=== PATIENT | male | born 1975 | race Caucasian/White ===

== ENCOUNTER → 2019-04-17 | Outpatient (CLI) | payer BC ==
--- NOTE | 2019-04-17 12:33 | US ---
EXAMINATION TYPE: US liver DATE OF EXAM: 04/17/2019 COMPARISON: NONE CLINICAL HISTORY: R74.8 elevated liver enzymes. Difficult and limited exam due to overlying bowel gas EXAM MEASUREMENTS: Liver Length: 15.1 cm Gallbladder Wall: 0.2 cm CBD: 0.4 cm Right Kidney: 9.8 x 4.7 x 4.9 cm Pancreas: Obscured by bowel gas Liver: Punctate foci of hyperechogenicity are seen such as on image 10/58 throughout the liver that c an be seen in hepatitis. No focal hepatic masses seen on today's examination. Gallbladder: wnl Evidence for sonographic Soto's sign: No CBD: wnl as visualized, distal portion obscured by bowel gas Right Kidney: No hydronephrosis or masses seen IMPRESSION: Heterogenous hepatic echotexture with multiple foci of hyperechogenicity that can be seen in acute hepatitis. No current sonographic evidence of acute cholecystitis.
== END | disposition home or self-care (01) ==
LOC: RADUSWWP 11:55
PROVIDERS: ATTEND Internal Medicine
DX: R74.8 Abnormal levels of other serum enzymes (principal)
CPT/HCPCS: 76705

== ENCOUNTER 2021-06-27 19:20 | Inpatient (IN) | payer BC ==
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
[2021-06-27] MEDS ORDERED: DIPH,PERTUS(ACELL)TETVAC-LF 0.5 ML VIAL IM ONE (20:00)
[2021-06-27] MEDS ORDERED: HYDROmorphone 0.5 MG/0.5 ML SYRINGE IVP STA (20:00)
[2021-06-27] MEDS ORDERED: SODIUM CHLORIDE 0.9% 1,000 ML IV STA (20:00)
[2021-06-27 20:41] LABS: Basophils # (A) 0.1 k/uL (0-0.2); Basophils % (A) 1 %; Eosinophils # (A) 0.2 k/uL (0-0.7); Eosinophils % (A) 1 %; HCT 44.6 % (39.0-53.0); Lymphocytes % (A) 10 %; MCH 33.1 pg (25.0-35.0); MCHC 33.7 g/dL (31.0-37.0); MCV 98.3 fL (80.0-100.0); Monocytes # (A) 0.8 k/uL (0-1.0); Monocytes % (A) 4 %; Neutrophils # (A) 15.8 k/uL (1.3-7.7); Neutrophils % (A) 83 %; Platelet Count 370 k/uL (150-450); RBC 4.54 m/uL (4.30-5.90); RDW 12.8 % (11.5-15.5); WBC 19.1 k/uL (3.8-10.6)
[2021-06-27 20:52] LABS: Partial Thromboplastin Time 22.4 sec (22.0-30.0); Prothrombin Time 10.5 sec (9.0-12.0)
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
[2021-06-27 21:08] LABS: Albumin 4.8 g/dL (3.5-5.0); Calcium 8.8 mg/dL (8.4-10.2); Potassium 4.3 mmol/L (3.5-5.1); Total Bilirubin 0.3 mg/dL (0.2-1.3); Total Protein 7.9 g/dL (6.3-8.2)
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
[2021-06-27] MEDS ORDERED: LIDOCAINE 1% INJ 10MG/ML (20 ML MDV) SQ STA (21:32)
[2021-06-27] MEDS ORDERED: NALOXONE 0.4 MG/ML 1 ML VIAL IV PRN (21:39)
[2021-06-27] MEDS ORDERED: LORazepam 2 MG/ML INJ IV STA (22:08)
[2021-06-27] MEDS ORDERED: HYDROmorphone 1 MG/ML 1 ML SYRINGE IVP STA (23:07)
[2021-06-27] MEDS: SODIUM CHLORIDE 0.9% 1,000 ML IV SCH (23:11)
--- NOTE | 2021-06-27 23:41 | XR ---
EXAMINATION TYPE: XR chest 1V portable DATE OF EXAM: 06/27/2021 COMPARISON: 06/27/2021 HISTORY: Chest tube TECHNIQUE: Single view. There is left-sided chest tube with the tip over the left upper lobe left paraspinal region. There is soft tissue air on the left lateral chest wall. No pneumothorax. Trachea is midline. Heart and media stinum are normal. Lungs appear clear of consolidation. There is left lateral rib fracture. There is soft tissue air at the base of the neck on the left side. IMPRESSION: Left side sixth rib fracture. No pneumothorax. Normal heart and mediastinum.
[2021-06-28 05:55] LABS: Basophils % (A) 0 %; Eosinophils # (A) 0.1 k/uL (0-0.7); Eosinophils % (A) 0 %; HCT 41.5 % (39.0-53.0); HGB 13.8 gm/dL (13.0-17.5); Lymphocytes # (A) 1.3 k/uL (1.0-4.8); Lymphocytes % (A) 8 %; MCHC 33.2 g/dL (31.0-37.0); MCV 99.5 fL (80.0-100.0); Mean Platelet Volume 8.1; Monocytes # (A) 0.9 k/uL (0-1.0); Monocytes % (A) 6 %; Neutrophils # (A) 13.6 k/uL (1.3-7.7); Neutrophils % (A) 85 %; Platelet Count 305 k/uL (150-450); RBC 4.18 m/uL (4.30-5.90); RDW 12.8 % (11.5-15.5); WBC 16.1 k/uL (3.8-10.6)
[2021-06-28 06:15] LABS: ALT 21 U/L (4-49); AST 48 U/L (17-59); African American GFR (CKD) >90 (>60 ml/min/1.73 sqM); Albumin 4.3 g/dL (3.5-5.0); Alkaline Phosphatase 103 U/L (38-126); Anion Gap 11 mmol/L; Blood Urea Nitrogen 11 mg/dL (9-20); Calcium 8.5 mg/dL (8.4-10.2); Carbon Dioxide 23 mmol/L (22-30); Chloride 105 mmol/L (98-107); Glucose 116 mg/dL (74-99); Non-African American GFR(CKD) >90 (>60 ml/min/1.73 sqM); Potassium 4.3 mmol/L (3.5-5.1); Sodium 139 mmol/L (137-145); Total Bilirubin 0.6 mg/dL (0.2-1.3); Total Protein 7.2 g/dL (6.3-8.2)
[2021-06-28] MEDS: HYDROmorphone 0.5 MG/0.5 ML SYRINGE IVP PRN ×3 (07:34→21:01)
[2021-06-28] MEDS ORDERED: HYDROcodone/APAP 5-325MG 1 EACH TAB PO PRN (09:05)
--- NOTE | 2021-06-28 09:14 | XR ---
EXAMINATION TYPE: XR chest 1V portable DATE OF EXAM: 06/28/2021 COMPARISON: 06/27/2021 HISTORY: Chest tube TECHNIQUE: Single frontal view of the chest is obtained. FINDINGS: Chest tube noted with left lower lobe consolidation and small effusion. Left-sided rib fra cture suspected with diffuse subcutaneous no sizable pneumothorax. IMPRESSION: 1. No sizable pneumothorax. Left lower lobe infiltrate and small effusion with subcutaneous emphysema extending into the soft tissues of the neck is stable.
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
--- NOTE | 2021-06-28 10:11 | XR ---
EXAMINATION TYPE: XR knee limited LT DATE OF EXAM: 06/28/2021 COMPARISON: NONE HISTORY: Pain TECHNIQUE: 2 views submitted FINDINGS: Osseous structures intact. Joint spaces preserved. No acute fracture or dislocation. No ero sive changes. IMPRESSION: No acute fracture
[2021-06-28] MEDS: SODIUM CHLORIDE 0.9% 1,000 ML IV SCH ×2 (11:28→15:01)
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
[2021-06-28] MEDS: KETOROLAC 15 MG/ML 1 ML VIAL IVP SCH ×2 (13:34→21:00)
[2021-06-28] MEDS: methocarbamoL 500 MG TAB PO SCH ×2 (13:36→17:52)
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
[2021-06-29] MEDS: methocarbamoL 500 MG TAB PO SCH ×5 (01:04→23:11)
[2021-06-29] MEDS: SODIUM CHLORIDE 0.9% 1,000 ML IV SCH ×4 (01:04→23:11)
[2021-06-29] MEDS: KETOROLAC 15 MG/ML 1 ML VIAL IVP SCH ×5 (01:07→23:10)
[2021-06-29] MEDS ORDERED: ACETAMINOPHEN TAB 325 MG TAB PO PRN (05:37)
--- NOTE | 2021-06-29 06:42 | ECHOF ---
Referral Reason:murmur MEASUREMENTS -------- HEIGHT: 175.3 cm WEIGHT: 83.9 kg BP: RVIDd: 2.4 cm (< 3.3) IVSd: 0.9 cm (0.6 - 1.1) LVIDd: 5.5 cm (3.9 - 5.3) LVPWd: 0.9 cm (0.6 - 1.1) IVSs: 1.3 cm LVIDs: 4.1 cm LVPWs: 0.9 cm Ao Diam: 3.2 cm (2.0 - 3.7) AV Cusp: 2.4 cm (1.5 - 2.6) MV EXCURSION: 17.297 mm (> 18.000) MV EF SLOPE: 121 mm/s (70 - 150) EPSS: 0.5 cm MV E Roberto: 0.86 m/s MV DecT: 183 ms MV A Roberto: 0.74 m/s MV E/A Ratio: 1.16 AV maxP.93 mmHg AV meanP.01 mmHg FINDINGS -------- Sinus rhythm. Pt had L Chest tube placed. The left ventricular size is normal. There is mild concentric left ventricular hypertrophy. Overa ll left ventricular systolic function is normal with, an EF between 55 - 60 %. The right ventricle is normal in size. The left atrial size is normal. The right atrial size is normal. The aortic valve was not well visualized. There is mild aortic stenosis present. Peak/mean gradie nt across the Aortic Valve is 21.93mmHg / 11.01mmHg. Can't exclude possible Bicuspid Aov. Mild mitral regurgitation is present. Mild tricuspid regurgitation present. Right ventricular systolic pressure is normal at < 35 mmHg. There is no pericardial effusion. CONCLUSIONS -------- 1. Pt had L Chest tube placed. 2. The left ventricular size is normal. 3. There is mild concentric left ventricular hypertrophy. 4. Overall left ventricular systolic function is normal with, an EF between 55 - 60 %. 5. The right ventricle is normal in size. 6. The left atrial size is normal. 7. The right atrial size is normal. 8. The aortic valve was not well visualized. 9. There is mild aortic stenosis present. 10. Peak/mean gradient across the Aortic Valve is 21.93mmHg / 11.01mmHg. 11. Can't exclude possible Bicuspid Aov. 12. Mild mitral regurgitation is present. 13. Mild tricuspid regurgitation present. 14. There is no pericardial effusion. CARGO AGENT: Olya Walls RDCS
--- NOTE | 2021-06-29 08:13 | XR ---
EXAMINATION TYPE: XR chest 1V portable DATE OF EXAM: 06/29/2021 COMPARISON: Chest x-ray 06/28/2021 HISTORY: Chest tube, pneumothorax TECHNIQUE: Single frontal view of the chest is obtained. FINDINGS: Left-sided chest tube remains in place showing a transverse orientation in the left mid ch est. Basilar atelectatic changes are present on the left with associated subcutaneous emphysema as on prior exam. Small left apical pneumothorax is present. No evident effusion. Cardiac mediastinal silh ouette is stable. There are overlying artifacts. There may be a spinal curvature. IMPRESSION: Findings are similar to prior exam. Small left apical pneumothorax and chest tube are pr esent. Basilar atelectasis is favored.
[2021-06-29 09:29] LABS: HCT 36.7 % (39.6-50.0); HGB 11.7 g/dL (13.0-17.0); MCH 32.7 pg (27.0-32.0); MCHC 31.9 g/dL (32.0-37.0); MCV 102.5 fL (80.0-97.0); Mean Platelet Volume 11.1 fL (9.5-12.2); Platelet Count 227 X 10*3/uL (140-440); RBC 3.58 X 10*6/uL (4.40-5.60); RDW 12.5 % (11.5-14.5); WBC 12.88 X 10*3/uL (4.50-10.00)
[2021-06-29] MEDS: HYDROmorphone 0.5 MG/0.5 ML SYRINGE IVP PRN (09:45)
[2021-06-29 10:24] LABS: Basophils # (A) 0.06 X 10*3/uL (0.00-0.10); Basophils % (A) 0.5 %; Eosinophils # (A) 0.57 X 10*3/uL (0.04-0.35); Eosinophils % (A) 4.4 %; Lymphocytes # (A) 2.59 X 10*3/uL (0.90-5.00); Lymphocytes % (A) 20.1 %; Monocytes % (A) 12.4 %; Neutrophils # (A) 8.03 X 10*3/uL (1.80-7.70); Neutrophils % (A) 62.4 %
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
--- NOTE | 2021-06-29 13:10 | P.PN ---
Subjective Progress Note Date: 06/29/21 Patient seen and examined at bedside. States he is comfortable overall. Denies any significant pain. Chest tube still in place. Objective - Vital Signs Vital signs: Vital Signs Temp 97.5 F L 06/29/21 08:00 Pulse 68 06/29/21 08:00 Resp 18 06/29/21 08:00 BP 137/89 06/29/21 08:00 Pulse Ox 100 06/29/21 08:00 Intake & Output 06/28/21 06/29/21 06/29/21 18:59 06:59 18:59 Weight 83.915 kg Other: Voiding Method Toilet Urinal # Voids 2 - Constitutional General appearance: Present: cooperative, no acute distress - Respiratory Details: Left sided chest tube in place, no significant air leak - Psychiatric Psychiatric: Present: A&O x's 3 - Labs CBC & Chem 7: 06/29/21 05:46 06/28/21 04:51 Labs: Abnormal Lab Results - Last 24 Hours (Table) 06/29/21 Range/Units 05:46 WBC 12.88 H (4.50-10.00) X 10*3/uL RBC 3.58 L (4.40-5.60) X 10*6/uL Hgb 11.7 L (13.0-17.0) g/dL Hct 36.7 L (39.6-50.0) % MCV 102.5 H (80.0-97.0) fL MCH 32.7 H (27.0-32.0) pg MCHC 31.9 L (32.0-37.0) g/dL Neutrophils # 8.03 H (1.80-7.70) X 10*3/uL Monocytes # 1.60 H (0.20-1.00) X 10*3/uL Eosinophils # 0.57 H (0.04-0.35) X 10*3/uL Assessment and Plan Plan: 46-year-old male with multiple left-sided rib fractures and pneumothorax - X-ray from this morning of the chest revealed small apical pneumothorax. No significant air leak noted in the atrium. Patient is being followed by cardiothoracic surgery. Defer to cardiac thoracic surgery for chest tube management. - Overall, patient's pain is controlled. Patient denies any new pain today. - Progressing slowly
[2021-06-29 15:25] LABS: African American GFR (CKD) 131.2 (60.0-200.0); Anion Gap 3.5 mmol/L (4.00-12.00); BUN/Creat Ratio 21.43 Ratio (12.00-20.00); Calcium 7.9 mg/dL (8.7-10.3); Carbon Dioxide 25.5 mmol/L (21.6-31.8); Magnesium 1.7 mg/dL (1.5-2.4); Non-African American GFR(CKD) 113.2 (60.0-200.0); Potassium 4.3 mmol/L (3.5-5.5)
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
[2021-06-29] MEDS: HEPARIN SODIUM,PORCINE/PF 5,000 UNIT/0.5 ML SYRINGE SQ SCH (23:10)
[2021-06-30] MEDS: HYDROmorphone 0.5 MG/0.5 ML SYRINGE IVP PRN (01:56)
[2021-06-30] MEDS: KETOROLAC 15 MG/ML 1 ML VIAL IVP SCH ×4 (06:03→23:00)
--- NOTE | 2021-06-30 08:11 | XR ---
EXAMINATION TYPE: XR chest 1V portable DATE OF EXAM: 06/30/2021 COMPARISON: Chest x-ray 06/29/2021 HISTORY: Chest tube on the left, pneumothorax TECHNIQUE: Single frontal view of the chest is obtained. FINDINGS: No evident pneumothorax is present, left-sided chest tube remains in place. Basilar atelec tatic changes and subcutaneous emphysema are again noted. There may be some subsegmental basilar atel ectatic change on the right. Cardiac mediastinal silhouette is stable. IMPRESSION: No evident pneumothorax.
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
[2021-06-30] MEDS ORDERED: FAMOTIDINE 20 MG/2 ML VIAL IV SCH (09:00)
[2021-06-30 09:21] LABS: Basophils # (A) 0.08 X 10*3/uL (0.00-0.10); Basophils % (A) 0.7 %; Eosinophils # (A) 0.69 X 10*3/uL (0.04-0.35); Eosinophils % (A) 6.1 %; HCT 36.3 % (39.6-50.0); HGB 11.5 g/dL (13.0-17.0); Lymphocytes # (A) 2.62 X 10*3/uL (0.90-5.00); MCH 31.8 pg (27.0-32.0); MCHC 31.7 g/dL (32.0-37.0); MCV 100.3 fL (80.0-97.0); Mean Platelet Volume 10.9 fL (9.5-12.2); Monocytes # (A) 1.25 X 10*3/uL (0.20-1.00); Neutrophils # (A) 6.73 X 10*3/uL (1.80-7.70); Neutrophils % (A) 58.9 %; Platelet Count 244 X 10*3/uL (140-440); RBC 3.62 X 10*6/uL (4.40-5.60); RDW 12.3 % (11.5-14.5)
[2021-06-30] MEDS: HEPARIN SODIUM,PORCINE/PF 5,000 UNIT/0.5 ML SYRINGE SQ SCH ×2 (09:23→21:12)
[2021-06-30] MEDS: methocarbamoL 500 MG TAB PO SCH ×4 (09:24→21:12)
[2021-06-30] MEDS: SODIUM CHLORIDE 0.9% 1,000 ML IV SCH ×2 (09:25→15:58)
[2021-06-30] MEDS ORDERED: AMOXIC-POT CLAV 500-125 MG 1 EACH TAB PO SCH (10:45)
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
--- NOTE | 2021-06-30 13:28 | US ---
EXAMINATION TYPE: US venous doppler duplex UE LT DATE OF EXAM: 06/30/2021 COMPARISON: NONE CLINICAL HISTORY: swelling. Left hand swelling SIDE PERFORMED: Left Grayscale, color doppler, spectral doppler imaging performed of the deep veins of the upper extremiti es. There is normal flow, compressibility and vascular waveforms. In the visualized left internal jugular vein, subclavian vein, axillary vein, basilic vein, brachial veins, radial and ulnar veins, there is normal flow, compressibility and vascular waveforms. Left Arm: No evidence of DVT Left cephalic vein at IV cath site at antecubital fossa there is superficial thrombus with low-level internal echoes, there is a catheter identified, more centrally the cephalic vein shows compression OSMEL Howard on [address] called with results IMPRESSION: No evident deep venous thrombosis. There is superficial venous thrombosis as described.
--- NOTE | 2021-06-30 17:19 | P.PN ---
Subjective Progress Note Date: 06/30/21 Patient seen and examined at bedside. States he is feeling well. Chest tube was noted this morning. Denies any difficulty breathing. Denies any shortness of breath. Overall, pain is well controlled Objective - Vital Signs Vital signs: Vital Signs Temp 98.4 F 06/30/21 14:00 Pulse 52 L 06/30/21 14:00 Resp 18 06/30/21 14:00 BP 146/95 06/30/21 14:00 Pulse Ox 100 06/30/21 14:00 Intake & Output 06/29/21 06/30/21 06/30/21 18:59 06:59 18:59 Intake Total 640 Output Total 200 Balance -200 640 Intake: Oral 640 Output: Urine 200 Other: Voiding Method Toilet Toilet Toilet Urinal Urinal Urinal # Voids 2 2 - Constitutional General appearance: Present: cooperative - Respiratory Details: Equal chest rise bilaterally, no difficulty with respiration - Gastrointestinal General gastrointestinal: Present: soft. Absent: tenderness - Integumentary Integumentary Comment(s): Some edematous changes of the left upper extremity - Musculoskeletal Musculoskeletal: Present: generalized weakness - Labs CBC & Chem 7: 06/30/21 06:53 06/29/21 05:46 Labs: Abnormal Lab Results - Last 24 Hours (Table) 06/30/21 Range/Units 06:53 WBC 11.40 H (4.50-10.00) X 10*3/uL RBC 3.62 L (4.40-5.60) X 10*6/uL Hgb 11.5 L (13.0-17.0) g/dL Hct 36.3 L (39.6-50.0) % MCV 100.3 H (80.0-97.0) fL MCHC 31.7 L (32.0-37.0) g/dL Monocytes # 1.25 H (0.20-1.00) X 10*3/uL Eosinophils # 0.69 H (0.04-0.35) X 10*3/uL Assessment and Plan Plan: 46-year-old male with multiple left-sided rib fractures and pneumothorax - Chest tube removed this morning. Plan is for a.m. chest x-ray for evaluation prior to discharge - New finding of some edema of left upper extremity. Ultrasound is being performed to evaluate for any thrombosis. - Overall, patient's pain is controlled. Patient denies any new pain today. - Progressing slowly
[2021-06-30] MEDS ORDERED: AMOXIC-POT CLAV 875-125MG 1 EACH TAB PO SCH (21:00)
[2021-06-30] MEDS: FAMOTIDINE 20 MG TAB PO SCH (21:12)
[2021-06-30] MEDS ORDERED: PIPERACILLIN-TAZOBACTAM 3.375 GM in SODIUM CHLORIDE 0.9% 100 ML IVPB SCH (22:00)
[2021-07-01] MEDS: SODIUM CHLORIDE 0.9% 1,000 ML IV SCH ×2 (02:22→10:18)
[2021-07-01] MEDS: KETOROLAC 15 MG/ML 1 ML VIAL IVP SCH (05:55)
[2021-07-01 07:13] VITALS: BP 149/90; PULSE 56; RESP 18; TEMP 98.3
--- NOTE | 2021-07-01 10:14 | XR ---
EXAMINATION TYPE: XR chest 2V DATE OF EXAM: 07/01/2021 COMPARISON: Chest x-ray 06/30/2021 HISTORY: Pneumothorax, status post chest tube removal TECHNIQUE: Frontal and lateral views of the chest are obtained. FINDINGS: Left-sided chest tube has been removed. Small left apical pneumothorax is present. Subcuta neous emphysema is again seen. Bibasilar atelectatic changes are suspected, right hemidiaphragm remai ns elevated. There are overlying leads. Cardiac mediastinal silhouette is stable. IMPRESSION: Small left apical pneumothorax status post chest tube removal
[2021-07-01] MEDS: HEPARIN SODIUM,PORCINE/PF 5,000 UNIT/0.5 ML SYRINGE SQ SCH (10:17)
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
[2021-07-01 10:18] LABS: Basophils # (A) 0.1 k/uL (0-0.2); Basophils % (A) 1 %; Eosinophils # (A) 0.7 k/uL (0-0.7); Eosinophils % (A) 7 %; HCT 39.8 % (39.0-53.0); HGB 13.3 gm/dL (13.0-17.5); Lymphocytes # (A) 1.9 k/uL (1.0-4.8); Lymphocytes % (A) 20 %; MCH 33.7 pg (25.0-35.0); MCHC 33.5 g/dL (31.0-37.0); MCV 100.7 fL (80.0-100.0); Mean Platelet Volume 8.6; Monocytes # (A) 0.6 k/uL (0-1.0); Monocytes % (A) 6 %; Neutrophils # (A) 6.3 k/uL (1.3-7.7); Neutrophils % (A) 64 %; Platelet Count 270 k/uL (150-450); RBC 3.95 m/uL (4.30-5.90); RDW 12.6 % (11.5-15.5); WBC 9.8 k/uL (3.8-10.6)
[2021-07-01] MEDS: methocarbamoL 500 MG TAB PO SCH (10:18)
[2021-07-01] MEDS: FAMOTIDINE 20 MG TAB PO SCH (10:18)
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
== END 2021-07-01 12:52 | disposition home or self-care (01) | DRG 184 ==
LOC: EC 19:20 → 4SSUR 21:39
PROVIDERS: ADMIT Surgery; ATTEND Surgery
PROC: 0W9B30Z Drainage of Left Pleural Cavity with Drainage Device, Percutaneous Approach (ICD-10-PCS; principal; 2021-06-27)
PROC: 3E0234Z Introduction of Serum, Toxoid and Vaccine into Muscle, Percutaneous Approach (ICD-10-PCS; 2021-06-27)
DX: S22.42XA Multiple fractures of ribs, left side, initial encounter for closed fracture (principal); S27.0XXA Traumatic pneumothorax, initial encounter; E87.2 Acidosis; T79.7XXA Traumatic subcutaneous emphysema, initial encounter; I82.612 Acute embolism and thrombosis of superficial veins of left upper extremity; T82.868A Thrombosis due to vascular prosthetic devices, implants and grafts, initial encounter; F10.129 Alcohol abuse with intoxication, unspecified; Z23 Encounter for immunization; I80.8 Phlebitis and thrombophlebitis of other sites; S01.112A Laceration without foreign body of left eyelid and periocular area, initial encounter; I08.3 Combined rheumatic disorders of mitral, aortic and tricuspid valves; Y90.7 Blood alcohol level of 200-239 mg/100 ml; M25.562 Pain in left knee; F17.210 Nicotine dependence, cigarettes, uncomplicated; Z71.6 Tobacco abuse counseling; Y04.8XXA Assault by other bodily force, initial encounter; V89.2XXA Person injured in unspecified motor-vehicle accident, traffic, initial encounter; Z98.52 Vasectomy status; Z82.61 Family history of arthritis; Z83.3 Family history of diabetes mellitus; Y84.8 Other medical procedures as the cause of abnormal reaction of the patient, or of later complication, without mention of misadventure at the time of the procedure; Y92.230 Patient room in hospital as the place of occurrence of the external cause
CPT/HCPCS: 32551; 70450; 71045; 71046; 71260; 72125; 72170; 74177; 80048; 80053; 80320; 82550; 83605; 83735; 84145; 84484; 85025; 85610; 85730; 86850; 86900; 86901; 87040; 90471; 90715; 93005; 93306; 94760; 96361; 96374; 99499